=== PATIENT | female | born 1995 | race Caucasian/White ===

== ENCOUNTER 2018-02-21 06:30 | Emergency (ER) | payer OTHER ==
[~2018-02-21] VITALS: Ht 167.6 cm; Wt 74.1 kg
[2018-02-21] MEDS ORDERED: LEVO1TAB69 PO (06:41)
[2018-02-21 07:53] VITALS: BP 127/85
[2018-02-21] MEDS ORDERED: DIAZEPAM 5 MG TABLET PO ONE (08:15)
[2018-02-21] MEDS ORDERED: KETOROLAC TROMETHAMINE 60 MG/2 ML VIAL IM ONE (08:15)
== END 2018-02-21 08:49 | disposition home or self-care (01) ==
LOC: EMS 06:31
DX: M43.6 Torticollis (principal); M62.838 Other muscle spasm; Z88.1 Allergy status to other antibiotic agents
CPT/HCPCS: 96372; 99283; J1885

== ENCOUNTER 2019-02-14 07:13 | Emergency (ER) | payer SELFPAY ==
[~2019-02-14] VITALS: Ht 162.6 cm; Wt 75.0 kg
[~2019-02-14 07:13] MED LIST: LEVO1TAB69 PO
[2019-02-14 07:24] VITALS: BP 136/82
[2019-02-14] MEDS ORDERED: PNV1TABL17 PO (07:36)
== END 2019-02-14 08:20 | disposition left against medical advice (07) ==
LOC: EMS 07:17
DX: T16.1XXA Foreign body in right ear, initial encounter (principal); Y92.89 Other specified places as the place of occurrence of the external cause